=== PATIENT | female | born 1985 | race Caucasian/White ===

== ENCOUNTER 2019-08-24 09:52 | Inpatient (IN) | payer OTHER ==
[~2019-08-24] VITALS: Ht 152.4 cm; Wt 60.8 kg
[~2019-08-24 09:52] MED LIST: RHOGAM ULTR1500 UNIT IM
[2019-08-24] MEDS ORDERED: PRENATAL CAPLE1 EAC1 PO (10:22)
== END 2019-08-26 12:42 | disposition home or self-care (01) | DRG 807 ==
LOC: LDR 09:52 → OB/GYN 17:11
PROVIDERS: ADMIT Obstetrics & Gynecology
PROC: 10E0XZZ Delivery of Products of Conception, External Approach (ICD-10-PCS; principal; 2019-08-24)
PROC: 3E033VJ Introduction of Other Hormone into Peripheral Vein, Percutaneous Approach (ICD-10-PCS; 2019-08-24)
PROC: 4A1HXFZ Monitoring of Products of Conception, Cardiac Rhythm, External Approach (ICD-10-PCS; 2019-08-24)
DX: O42.02 Full-term premature rupture of membranes, onset of labor within 24 hours of rupture (principal); Z37.0 Single live birth; Z3A.39 39 weeks gestation of pregnancy